=== PATIENT | female | born 1980 | race Caucasian/White ===

== ENCOUNTER 2018-06-08 13:41 | Outpatient (CLI) | payer MEDICARE, MEDICAID | END 2018-06-08 13:42 | disposition home or self-care (01) | LOC: BICMAMMO 13:41 | PROVIDERS: ATTEND Internal Medicine | DX: Z12.31 Encounter for screening mammogram for malignant neoplasm of breast (principal); Z80.3 Family history of malignant neoplasm of breast | CPT/HCPCS: 77063; 77067 ==

== ENCOUNTER 2019-06-08 13:14 | Outpatient (CLI) | payer MEDICARE, MEDICAID ==
[~2019-06-08 13:14] MED LIST: Iopamidol-370 76% 500 ML 1 ML ONE
--- NOTE | 2019-06-08 14:58 | CT ---
CT NECK SOFT TISSUES WITH CONTRAST: DATE: 06/08/2019. HISTORY: A 38-year-old male with ICD-10: R22.1, neck mass. COMPARISON: None. FINDINGS: The bilateral common carotid and internal carotid arteries are tortuous and medialized, with retropha ryngeal courses. This compresses and narrows the hypopharynx and larynx. The laryngeal airway is further severely narrowed by a multinodular diffuse soft tissue thickening in volving false vocal cords and aryepiglottic folds. This extends into the supraglottic larynx, and is contiguous with a similar appearance of the lingual tonsil. The adenoids are hyperplastic. There is no cervical lymphadenopathy. There are broad, elongated bands of fat within the inferior po rtions of the bilateral sternocleidomastoid muscles, right greater than left. There is no retropharyngeal abscess. No cervical lymphadenopathy. No pathology identified involving submandibular, parotid, perivertebral, parapharyngeal, sublingual, person investigator, or posterior cervical , spaces, other than scattered mildly enlarged cervical lymph nodes. The largest cervical lymph node is a left level II lymph node measuring approximately 1 x 1.5 x 1.5 cm posterior to the left interna l jugular vein. IMPRESSION: 1. Severe narrowing of the supraglottic airway (and possibly also the glottic airway) by diffuse nod ular soft tissue thickening. Possibilities include laryngeal papillomatosis, laryngeal carcinoma, an d severe laryngitis. 2. The laryngeal airway is further narrowed by retropharyngeal, tortuous carotid arteries. 3. Mildly enlarged left level II cervical lymph node, nonspecific. 4. Lipomas of the bilateral sternocleidomastoid muscles. POS: OFF
== END 2019-06-08 13:15 | disposition home or self-care (01) ==
LOC: BICCT 13:14
PROVIDERS: ATTEND Internal Medicine
DX: R22.1 Localized swelling, mass and lump, neck (principal); J38.6 Stenosis of larynx; R59.0 Localized enlarged lymph nodes; D17.9 Benign lipomatous neoplasm, unspecified
CPT/HCPCS: 70491; Q9967

== ENCOUNTER 2019-06-14 12:18 | Outpatient (CLI) | payer MEDICARE, MEDICAID ==
--- NOTE | 2019-06-14 16:36 | MRI ---
BILATERAL BREAST MRI WITH AND WITHOUT IV CONTRAST WITH ADDITIONAL EVALUATION ON AN INDEPENDENT 3D WOR KSTATION: History: 38-year-old female with genetic susceptibility to breast cancer. Patient has a history of br east cancer in the family and has tested positive for BRCA gene. FINDINGS: No mass or abnormal postcontrast enhancement is seen. No axillary or internal mammary lymphadenopathy is noted. The visualized bony structures are unremarkable. IMPRESSION: BIRADS category 1 - negative. Age appropriate screening based on risk factors is recommended. POS: ANA
== END 2019-06-14 12:19 | disposition home or self-care (01) ==
LOC: BICMRI 12:18
PROVIDERS: ATTEND Internal Medicine
DX: Z15.01 Genetic susceptibility to malignant neoplasm of breast (principal)
CPT/HCPCS: A9577; C8908

== ENCOUNTER 2019-06-28 13:33 | Outpatient (CLI) | payer MEDICARE, MEDICAID ==
--- NOTE | 2019-06-28 14:43 | ULT ---
EXAM: US Neck Soft Tissue PROVIDED CLINICAL HISTORY: Follow-up lymphadenopathy left neck. COMPARISON: CTA neck on 06/08/2019. FINDINGS: There is a hypoechoic structure measuring 15 mm x 9 mm within the left neck with suggestion of very t iny echogenic focus along the periphery, and this may represent a mildly enlarged lymph node which would correspond to prior CT scan abnormalities. A smaller hypoechoic structure with appearance most suggestive of a lymph node is also seen in the left neck measuring 10 mm x 4 mm. No additional mass or cystic lesion is seen in the left neck. IMPRESSION: Hypoechoic structure left neck likely related to a mildly enlarged lymph node. This would correspond to CT scan findings on 06/08/2019.
== END 2019-06-28 13:34 | disposition home or self-care (01) ==
LOC: BICULT 13:33
PROVIDERS: ATTEND Student in an Organized Health Care Education/Training Program
DX: R59.0 Localized enlarged lymph nodes (principal)
CPT/HCPCS: 76536

== ENCOUNTER 2020-06-21 12:44 | Outpatient (CLI) | payer MEDICARE, MEDICAID | END 2020-06-21 12:45 | disposition home or self-care (01) | LOC: ULT 12:44 | PROVIDERS: ATTEND Internal Medicine | DX: R01.1 Cardiac murmur, unspecified (principal) | CPT/HCPCS: 93306 ==

== ENCOUNTER 2020-06-21 15:00 | Outpatient (CLI) | payer MEDICARE, MEDICAID ==
--- NOTE | 2020-06-22 11:16 | MRI ---
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 BRCA positive. COMPARISON: 06/14/2019 and mammograms of 01/20/2020 and 06/08/2018. TECHNIQUE: Multiplanar, multisequence MR images were obtained in the bilateral breasts without and with IV contr ast. Contrast enhancement curves and 3D MIP reformats were generated on a [employer] workstation. FINDINGS: Scattered fibroglandular breast tissue is seen. Minimal background parenchymal enhancement is seen. There is a well-circumscribed 4.0 mm focus of high T2 signal and enhancement in the anterior aspect o f the outer right breast. This likely represents a small intramammary lymph node and is stable compar ed to the prior MRI. No suspicious area of enhancement is seen in the breasts. No suspicious mass is seen in either breast. There are slightly prominent bilateral axillary lymph nodes measuring up to 1.4 cm in size. These wer e partially visualized on the prior examination and are stable. No marrow signal abnormality is seen. No internal mammary lymph nodes are identified. IMPRESSION: BI-RADS Category 2 - Benign findings. Continued annual screening mammography is recommended. POS: NAHOMY
== END 2020-06-21 15:01 | disposition home or self-care (01) ==
LOC: BICMRI 15:00
PROVIDERS: ATTEND Internal Medicine
DX: Z15.01 Genetic susceptibility to malignant neoplasm of breast (principal)
CPT/HCPCS: A9577; C8908

== ENCOUNTER 2020-07-27 19:30 | Outpatient (CLI) | payer MEDICARE, MEDICAID | END 2020-07-27 19:31 | disposition home or self-care (01) | LOC: SLEEPLAB 19:30 | PROVIDERS: ATTEND Internal Medicine | DX: G47.33 Obstructive sleep apnea (adult) (pediatric) (principal); R06.83 Snoring; E66.9 Obesity, unspecified; G47.10 Hypersomnia, unspecified; G47.00 Insomnia, unspecified; Z68.43 Body mass index [BMI] 50.0-59.9, adult | CPT/HCPCS: 95810 ==

== ENCOUNTER 2020-08-21 19:30 | Outpatient (CLI) | payer MEDICARE, MEDICAID | END 2020-08-21 19:31 | disposition home or self-care (01) | LOC: SLEEPLAB 19:30 | PROVIDERS: ATTEND Internal Medicine | DX: G47.33 Obstructive sleep apnea (adult) (pediatric) (principal); R06.83 Snoring; G47.10 Hypersomnia, unspecified; E66.9 Obesity, unspecified; Z68.43 Body mass index [BMI] 50.0-59.9, adult | CPT/HCPCS: 95811 ==

== ENCOUNTER 2020-12-21 06:35 | Observation (INO) | payer MEDICARE, MEDICAID ==
[2020-12-21] MEDS ORDERED: Methylene Blue 50 MG/10 ML AMPUL ONE (06:41)
[2020-12-21] MEDS ORDERED: Fentanyl 100 MCG/2 ML VIAL ONE ×2 (07:17→10:57)
[2020-12-21 07:24] LABS: #Basophils 0.1 thou/uL (0.0-0.2); #Eosinphils 0.2 thou/uL (0.0-0.7); #Lymphocytes 2.4 thou/uL (1.20-3.40); #Monocytes 0.5 thou/uL (0.11-0.59); #Neutrophils 4.7 thou/uL (1.40-6.50); %Basophils 1.1 % (0.0-1.0); %Eosinophils 2.3 % (0.0-10.0); %Lymphocytes 30.6 % (21.0-51.0); %Monocytes 5.7 % (0.0-10.0); %Neutrophils 60.3 % (42.0-75.0); Hemoglobin 13.3 g/dL (12.0-16.0); Mean Corpuscular HGB CONC 32.8 g/dL (32.0-36.0); Mean Corpuscular Hemoglobin 30.4 pg (27.0-31.0); Mean Corpuscular Volume 92.7 fL (78.0-98.0); Mean Platelet Volume 7.3 fL (7.4-10.4); Platelet Count 325 thou/uL (130-400); RBC Distribution Width 16.2 % (11.5-14.5); Red Blood Cell (RBC) Count 4.38 mill/uL (4.20-5.40); White Blood Cell (WBC) Count 7.8 thou/uL (4.8-10.8)
[2020-12-21 07:28] LABS: Anion Gap 17 mmol/L (10-20); BUN (Urea Nitrogen) 14 mg/dL (7.0-18.7); Calc. Creatinine Clearance 161 mL/min (70-130); Calcium 9.1 mg/dL (7.8-10.44); Carbon Dioxide 19 mmol/L (22-29); Chloride 107 mmol/L (98-107); Glucose 107 mg/dL (70-105); Potassium 4.2 mmol/L (3.5-5.1); Sodium 139 mmol/L (136-145)
[2020-12-21] MEDS ORDERED: Phenylephrine 10 MG/ML VIAL ONE (08:07)
[2020-12-21] MEDS ORDERED: Ondansetron HCl/PF 4 MG/2 ML Vial IVP PRN (08:33)
[2020-12-21] MEDS ORDERED: Promethazine HCl 25 MG/ML VIAL SLOW IVP PRN (08:33)
[2020-12-21] MEDS ORDERED: Meperidine HCl/PF 25 MG/ML VIAL SLOW IVP PRN (08:33)
[2020-12-21] MEDS ORDERED: HYDROmorphone 2 MG/ML VIAL SLOW IVP PRN (08:33)
[2020-12-21] MEDS ORDERED: Glycopyrrolate 0.2 MG/ML 5 ML SYRINGE ONE (10:47)
[2020-12-21] MEDS ORDERED: ePHEDrine Sulfate 50 MG/10 ML VIAL ONE (10:47)
[2020-12-21] MEDS ORDERED: Rocuronium Bromide 10 MG/ML (10ML VIAL) ONE (10:47)
[2020-12-21] MEDS ORDERED: Succinylcholine 200 MG/10 ml SYRINGE FS ONE (10:47)
[2020-12-21] MEDS ORDERED: Ondansetron PF 4 MG/2 ML Vial ONE (10:47)
[2020-12-21] MEDS ORDERED: Lidocaine 1% PF 5 ML VIAL ONE (10:47)
[2020-12-21] MEDS ORDERED: PROPOFOL 200 MG/20 ML VIAL ONE (10:47)
[2020-12-21] MEDS ORDERED: PHENYLEPHRINE-NS 100 MCG/ML 10 ML SYRINGE ONE (10:47)
[2020-12-21] MEDS ORDERED: Dexamethasone 20 MG/5 ML VIAL ONE (10:47)
[2020-12-21] MEDS ORDERED: hydrALAZINE 20 MG/ML VIAL SLOW IVP PRN (11:25)
[2020-12-21] MEDS ORDERED: Morphine 2 MG/ML VIAL SLOW IVP PRN (11:25)
[2020-12-21] MEDS ORDERED: HYDROcodone/Acetaminophen 7.5/325 mg Tablet PO PRN (11:25)
[2020-12-21] MEDS ORDERED: Dextrose 5% in Water 1,000 ML IV PRN (11:25)
[2020-12-21] MEDS ORDERED: Ondansetron PF 4 MG/2 ML Vial IVP PRN (11:25)
[2020-12-21] MEDS ORDERED: Dextrose 50% Abboject 50 ML SYRINGE SLOW IVP PRN (11:25)
[2020-12-21] MEDS ORDERED: Promethazine HCl 25 MG/ML VIAL IM PRN (11:25)
[2020-12-21] MEDS ORDERED: Morphine 4 MG/ML VIAL SLOW IVP PRN (11:25)
[2020-12-21] MEDS: Sodium Chloride 0.9% 1,000 ML IV SCH ×2 (11:30→17:49)
[2020-12-21] MEDS: Fluconazole 100 MG TAB PO SCH (17:38)
[2020-12-21 19:30] VITALS: BMI 52.7
[2020-12-21] MEDS: Famotidine 20 MG TAB PO SCH (20:19)
[2020-12-21] MEDS ORDERED: Cepastat Lozenges 1 LOZ PO PRN (20:30)
[2020-12-22 04:08] VITALS: BP 111/53; TEMP 99.7
[2020-12-22 07:31] LABS: #Monocytes 0.6 thou/uL (0.11-0.59); #Neutrophils 11.6 thou/uL (1.40-6.50); %Basophils 0.1 % (0.0-1.0); %Eosinophils 0.2 % (0.0-10.0); %Lymphocytes 14.1 % (21.0-51.0); %Monocytes 4.1 % (0.0-10.0); %Neutrophils 81.5 % (42.0-75.0); Hemoglobin 10.1 g/dL (12.0-16.0); Mean Corpuscular HGB CONC 33.8 g/dL (32.0-36.0); Mean Corpuscular Hemoglobin 31.5 pg (27.0-31.0); Mean Corpuscular Volume 93.4 fL (78.0-98.0); Mean Platelet Volume 7.6 fL (7.4-10.4); Platelet Count 313 thou/uL (130-400); RBC Distribution Width 16.4 % (11.5-14.5); Red Blood Cell (RBC) Count 3.22 mill/uL (4.20-5.40); White Blood Cell (WBC) Count 14.2 thou/uL (4.8-10.8)
[2020-12-22] MEDS: Famotidine 20 MG TAB PO SCH (09:28)
[2020-12-22] MEDS: Fluconazole 100 MG TAB PO SCH (09:29)
== END 2020-12-22 12:40 | disposition home or self-care (01) ==
LOC: SDC 06:35 → ONC 11:25
PROVIDERS: ADMIT Surgery; ATTEND Surgery
PROC: 0HTV0ZZ Resection of Bilateral Breast, Open Approach (ICD-10-PCS; principal; 2020-12-21)
DX: Z40.01 Encounter for prophylactic removal of breast (principal); N60.21 Fibroadenosis of right breast; N60.22 Fibroadenosis of left breast; G47.33 Obstructive sleep apnea (adult) (pediatric); Q90.9 Down syndrome, unspecified; F79 Unspecified intellectual disabilities; E03.9 Hypothyroidism, unspecified; E66.01 Morbid (severe) obesity due to excess calories; Z68.43 Body mass index [BMI] 50.0-59.9, adult; Z88.2 Allergy status to sulfonamides
CPT/HCPCS: 19303; 80048; 85025 ×2; 88307; Q9968; 36415; 96372; 96374; G0378; J0690; J1100; J2370; J2405; J2550; J2704; J3010

== ENCOUNTER 2021-01-05 16:18 | Emergency (ER) | payer MEDICARE, MEDICAID ==
[2021-01-05 18:59] LABS: #Basophils 0.1 thou/uL (0.0-0.2); #Eosinphils 0.1 thou/uL (0.0-0.7); #Monocytes 0.6 thou/uL (0.11-0.59); #Neutrophils 5.2 thou/uL (1.40-6.50); %Basophils 0.7 % (0.0-1.0); %Eosinophils 1.6 % (0.0-10.0); %Lymphocytes 25.1 % (21.0-51.0); %Monocytes 7.2 % (0.0-10.0); %Neutrophils 65.4 % (42.0-75.0); Hemoglobin 9.5 g/dL (12.0-16.0); Mean Corpuscular Hemoglobin 31.4 pg (27.0-31.0); Mean Corpuscular Volume 92.4 fL (78.0-98.0); Mean Platelet Volume 6.6 fL (7.4-10.4); Platelet Count 430 thou/uL (130-400); RBC Distribution Width 16.1 % (11.5-14.5); Red Blood Cell (RBC) Count 3.04 mill/uL (4.20-5.40)
[2021-01-05 19:21] LABS: ALT (SGPT) 10 U/L (8-55); AST (SGOT) 10 U/L (5-34); Albumin 3.1 g/dL (3.5-5.0); Alkaline Phosphatase 74 U/L (40-110); Anion Gap 15 mmol/L (10-20); BUN (Urea Nitrogen) 12 mg/dL (7.0-18.7); Bilirubin, Total 0.4 mg/dL (0.2-1.2); Calc. Creatinine Clearance 0 mL/min (70-130); Calcium 8.9 mg/dL (7.8-10.44); Carbon Dioxide 26 mmol/L (22-29); Chloride 101 mmol/L (98-107); Globulin 3.4 g/dL (2.4-3.5); Glucose 110 mg/dL (70-105); Potassium 3.7 mmol/L (3.5-5.1); Protein, Total 6.5 g/dL (6.0-8.3); Sodium 138 mmol/L (136-145)
== END 2021-01-05 19:00 | disposition home or self-care (01) ==
LOC: ERS 16:18
DX: T81.30XA Disruption of wound, unspecified, initial encounter (principal); N61.0 Mastitis without abscess
CPT/HCPCS: 36415; 80053; 83605; 85025; 99283

== ENCOUNTER 2022-11-22 15:10 | Outpatient (CLI) | payer OTHER, MEDICAID | END 2022-11-22 15:11 | disposition home or self-care (01) | LOC: ULT 15:10 | PROVIDERS: ATTEND Internal Medicine | DX: R59.0 Localized enlarged lymph nodes (principal) | CPT/HCPCS: 76536 ==

== ENCOUNTER 2023-03-12 15:35 | Outpatient (CLI) | payer OTHER, MEDICAID | END 2023-03-12 15:36 | disposition home or self-care (01) | LOC: BICULT 15:35 | PROVIDERS: ATTEND Student in an Organized Health Care Education/Training Program | DX: R59.0 Localized enlarged lymph nodes (principal) | CPT/HCPCS: 76536 ==

== ENCOUNTER 2023-08-25 08:32 | Outpatient (CLI) | payer OTHER, MEDICAID ==
[2023-08-25] MEDS ORDERED: Iopamidol-370 76% 500 ML MDV (1 ML CHARGE) ONE (10:51)
== END 2023-08-25 08:33 | disposition home or self-care (01) ==
LOC: BICCT 08:32
PROVIDERS: ATTEND Internal Medicine
DX: R19.01 Right upper quadrant abdominal swelling, mass and lump (principal); K43.9 Ventral hernia without obstruction or gangrene
CPT/HCPCS: 74177

== ENCOUNTER 2023-09-15 01:06 | Inpatient (IN) | payer MEDICAID, OTHER ==
[2023-09-15] MEDS ORDERED: Ondansetron ODT 4 MG TAB ONE (01:28)
[2023-09-15] MEDS ORDERED: Ondansetron PF 4 MG/2 ML Vial ONE ×2 (02:15→13:31)
[2023-09-15] MEDS ORDERED: Morphine 10 MG/ML VIAL ONE (02:48)
[2023-09-15 03:48] LABS: #Basophils 0.1 thou/uL (0.0-0.2); #Monocytes 0.4 thou/uL (0.11-0.59); #Neutrophils 9.1 thou/uL (1.40-6.50); %Basophils 0.7 % (0.0-1.0); %Eosinophils 0.3 % (0.0-10.0); %Monocytes 3.1 % (0.0-10.0); %Neutrophils 80.7 % (42.0-75.0); Hematocrit 41.6 % (36.0-47.0); Hemoglobin 13.7 g/dL (12.0-16.0); Mean Corpuscular HGB CONC 32.9 g/dL (32.0-36.0); Mean Corpuscular Hemoglobin 30.3 pg (27.0-31.0); Mean Platelet Volume 9.5 fL (7.4-10.4); Platelet Count 355 10x3/uL (130-400); Red Blood Cell (RBC) Count 4.52 mill/uL (4.20-5.40); White Blood Cell (WBC) Count 11.3 10x3/uL (4.8-10.8)
[2023-09-15] MEDS ORDERED: Magnesium 2 GM/50 ML BAG (IN WATER) ONE (04:17)
[2023-09-15 04:26] LABS: ALT (SGPT) 21 U/L (8-55); AST (SGOT) 16 U/L (5-34); Albumin 3.7 g/dL (3.5-5.0); Alkaline Phosphatase 81 U/L (40-110); Anion Gap 16 mmol/L (10-20); BUN (Urea Nitrogen) 14 mg/dL (7.0-18.7); Bilirubin, Total 0.4 mg/dL (0.2-1.2); Calc. Creatinine Clearance 0 mL/min (70-130); Calcium 9.3 mg/dL (7.8-10.44); Carbon Dioxide 26 mmol/L (22-29); Chloride 102 mmol/L (98-107); Estimated GFR 75; Globulin 3.7 g/dL (2.4-3.5); Glucose 144 mg/dL (70-105); Lipase 15 U/L (8-78); Potassium 3.9 mmol/L (3.5-5.1); Protein, Total 7.4 g/dL (6.0-8.3); Sodium 140 mmol/L (136-145)
[2023-09-15 09:57] VITALS: BMI 52.9
[2023-09-15] MEDS ORDERED: Morphine 4 MG/ML VIAL SLOW IVP PRN (09:58)
[2023-09-15] MEDS ORDERED: Dextrose 5% in Water 1,000 ML IV PRN (09:58)
[2023-09-15] MEDS ORDERED: Ondansetron PF 4 MG/2 ML Vial IVP PRN (09:58)
[2023-09-15] MEDS ORDERED: Dextrose 50% Abboject 50 ML SYRINGE SLOW IVP PRN (09:58)
[2023-09-15] MEDS ORDERED: Morphine 2 MG/ML VIAL SLOW IVP PRN (09:58)
[2023-09-15] MEDS ORDERED: Ipratropium/Albuterol 3 ML NEB NEB PRN (09:58)
[2023-09-15] MEDS ORDERED: Glucagon 1 MG/ML KIT IM PRN (09:58)
[2023-09-15] MEDS ORDERED: hydrALAZINE 20 MG/ML VIAL SLOW IVP PRN (09:58)
[2023-09-15] MEDS ORDERED: Promethazine HCl 25 MG/ML VIAL IM PRN (09:58)
[2023-09-15] MEDS: Sodium Chloride 0.9% 1,000 ML IV SCH (10:53)
[2023-09-15] MEDS: Famotidine/PF 20 mg/2ml Vial SLOW IVP SCH ×2 (10:59→20:27)
[2023-09-15] MEDS: Lactated Ringer's 1,000 ML IV SCH (11:00)
[2023-09-15] MEDS ORDERED: Sodium Chloride 0.9% 100 ML ONE (12:53)
[2023-09-15] MEDS ORDERED: CEFAZOLIN 2 GM VIAL ONE (12:53)
[2023-09-15] MEDS ORDERED: Lidocaine 1% PF 5 ML VIAL ONE (13:08)
[2023-09-15] MEDS ORDERED: SUCCINYLCHOLINE/SOD CL,ISO/PF 200 MG/10 ML SYRINGE FS ONE (13:08)
[2023-09-15] MEDS ORDERED: PROPOFOL 20 ML ONE (13:08)
[2023-09-15] MEDS ORDERED: fentaNYL PF 100 MCG/2 ML SYRINGE ONE ×2 (13:08→14:20)
[2023-09-15] MEDS ORDERED: Rocuronium Bromide 10 MG/ML (10ML VIAL) ONE (13:08)
[2023-09-15] MEDS ORDERED: ePHEDrine Sulfate 50 MG/10 ML VIAL ONE (13:19)
[2023-09-15] MEDS ORDERED: Dexamethasone 20 MG/5 ML VIAL ONE (13:31)
[2023-09-15] MEDS ORDERED: SUGAMMADEX SODIUM 200 MG/2 ML VIAL ONE (13:31)
[2023-09-15] MEDS ORDERED: Acetaminophen 325 MG TAB PO PRN (14:25)
[2023-09-15] MEDS ORDERED: fentaNYL 50 mcg/mL 1 mL Vial ONE (14:59)
[2023-09-15] MEDS: traMADol HCl 50 MG TAB PO PRN (17:30)
[2023-09-15] MEDS: Famotidine 20 MG TAB PO SCH (20:27)
[2023-09-16] MEDS: Acetaminophen 325 MG TAB PO SCH (15:42)
[2023-09-17 08:31] VITALS: TEMP 97.9
[2023-09-17 12:12] VITALS: BP 117/68
== END 2023-09-17 15:10 | disposition home or self-care (01) | DRG 354 ==
LOC: ERS 01:06 → SJJU 08:57
PROVIDERS: ADMIT Surgery; ATTEND Surgery
PROC: 0WUF0JZ Supplement Abdominal Wall with Synthetic Substitute, Open Approach (ICD-10-PCS; principal; 2023-09-15)
DX: K43.0 Incisional hernia with obstruction, without gangrene (principal); Z68.43 Body mass index [BMI] 50.0-59.9, adult; E66.9 Obesity, unspecified; Z88.2 Allergy status to sulfonamides
CPT/HCPCS: 74177; 80053; 83605; 83690; 85025; 88302; 96374; 96375; C1781; J1100; J2270; J2405; J2704; J3010; J3475; J3490; J7120; Q0162; S0028

== ENCOUNTER 2023-12-12 15:35 | Outpatient (CLI) | payer OTHER | END 2023-12-12 15:36 | disposition home or self-care (01) | LOC: BICULT 15:35 | PROVIDERS: ATTEND Internal Medicine | DX: R59.0 Localized enlarged lymph nodes (principal) | CPT/HCPCS: 76536 ==

== ENCOUNTER 2024-04-28 13:30 | Outpatient (CLI) | payer OTHER | END 2024-04-28 13:31 | disposition home or self-care (01) | LOC: DTY/OP 13:30 | PROVIDERS: ATTEND Internal Medicine | DX: F79 Unspecified intellectual disabilities (principal); Q90.9 Down syndrome, unspecified; E66.01 Morbid (severe) obesity due to excess calories; Z68.42 Body mass index [BMI] 45.0-49.9, adult | CPT/HCPCS: 97802 ==

== ENCOUNTER 2025-03-31 08:41 | Outpatient (CLI) | payer OTHER | END 2025-03-31 08:42 | disposition home or self-care (01) | LOC: CT 08:41 | PROVIDERS: ATTEND Internal Medicine | DX: R22.2 Localized swelling, mass and lump, trunk (principal); M79.89 Other specified soft tissue disorders | CPT/HCPCS: 70491 ==